=== PATIENT | female | born 1980 | race Caucasian/White ===

== ENCOUNTER → 2023-05-16 09:36 | Outpatient (CLI) | payer BC, SELFPAY ==
--- NOTE | ~2023-05-16 | XR_ITS ---
XR lumbar spine min 4V DATE: 05/16/2023 10:08 INDICATION: Low back pain TECHNIQUE: AP, lateral, coned lateral lumbosacral and bilateral oblique views COMPARISON: None FINDINGS: There is mild degenerative disc disease at L1-2 and L2-3. Lumbar levels interspaces appear relatively well preserved. No fracture or bone destruction or spondylolisthesis. The included lower t horacic and lumbar pedicles are intact. The sacral iliac joints appear normal. IMPRESSION: Mild degenerative change Reviewed, dictated and finalized at location L. IMPRESSION: Mild degenerative change
== END ==
PROVIDERS: PCP Chiropractor; Visit Provider Chiropractor
DX: M54.50 Low back pain, unspecified (principal); R20.2 Paresthesia of skin
CPT/HCPCS: 72110